=== PATIENT | male | born 1995 | race Caucasian/White ===

== ENCOUNTER → 2024-06-24 06:27 | Day surgery (SDC) | payer OTHER, SELFPAY | LOC: GI 06:27 | PROVIDERS: ATTENDING PHYSICIAN Surgery | DX: R10.9 Unspecified abdominal pain (principal); R63.4 Abnormal weight loss; K64.9 Unspecified hemorrhoids; K57.30 Diverticulosis of large intestine without perforation or abscess without bleeding; K55.20 Angiodysplasia of colon without hemorrhage; R19.4 Change in bowel habit | CPT/HCPCS: 45380; 88305 ==